=== PATIENT | female | born 1950 | race Caucasian/White ===

== ENCOUNTER 2016-09-14 08:35 | Inpatient (IN) | payer OTHER ==
[2016-09-08 11:04] LABS: HEMATOCRIT 38.6 % (37.0-47.0); HEMOGLOBIN 12.9 gm/dL (12.0-15.0); MCH 30.5 pg (26.0-34.0); MCHC 33.5 % (28.0-37.0); MCV 91.3 fL (80.0-100.0); RBC 4.23 mil/uL (4.20-5.00); RDW 15.2 % (10.5-14.5); WBC 8.7 thou/uL (4.0-11.0)
[2016-09-08 11:15] LABS: URINE BILIRUBIN NEGATIVE (Negative); URINE BLOOD NEGATIVE (Negative); URINE COLOR YELLOW; URINE GLUCOSE-RANDOM* NEGATIVE (Negative); URINE KETONES NEGATIVE (Negative); URINE LEUKOCYTES-REFLEX NEGATIVE (Negative); URINE PROTEIN (DIPSTICK) NEGATIVE (Negative); URINE UROBILINOGEN 0.2 E.U./dl (0.2-1.0)
[2016-09-08 11:16] LABS: APTT 29.9 Seconds (24.5-32.8); PROTIME 9.4 Seconds (9.3-11.4)
[2016-09-08 11:17] LABS: ALBUMIN 3.5 g/dL (3.4-5.0); CALCIUM 8.7 mg/dL (8.5-10.1); CREATININE 1.5 mg/dL (0.6-1.3); POTASSIUM 4.7 mmol/L (3.5-5.1); TOTAL BILIRUBIN 0.2 mg/dL (<0.1-1.0); TOTAL PROTEIN 7.7 g/dL (6.4-8.2)
[~2016-09-14] VITALS: Ht 167.6 cm; Wt 93.0 kg
--- NOTE | ~2016-09-14 | CATHLAB ---
[facility] [place] [address] INVASIVE PROCEDURE REPORT Name: CARMINE VACA Room #: 244-P [facility] IN M.R.#: [id number] Admission: 09/28/16 Attend Phys: Jamie Dalton MD Discharge: 09/29/16 Date of : 46 Date of Service: 09/28/16 1120 Report #: [id number] THIS REPORT FOR: //name// CC: Sebas Dalton NAME OF THE STUDY: Abdominal aortic aneurysm repair using [place] Excluder stent graft. OPERATORS: 1. Dr. Jamie Dalton of cardiovascular surgery. 2. Dr. Gabino Sales, of interventional radiology. INDICATION: 6.4 cm enlarging saccular infrarenal abdominal aortic aneurysm. Coronary artery disease. Peripheral arterial disease. Chronic renal insufficiency. Renovascular stenosis. PROCEDURE: Procedure and risk of abdominal aortic aneurysm repair using stent graft technique were thoroughly discussed with the patient as well as the option of open repair and consent obtained. The patient brought to the interventional operating suite and the abdomen and both groins were prepped and draped in normal sterile fashion. Dr. Dalton performed cut down first over the right groin and then over the left groin. Femoral vessels were secured with vessel loops. I then made a puncture into the right common femoral artery and placed a wire followed by a catheter into the proximal descending thoracic aorta. This allowed placement of a support wire. Following this, an 18-[place] sheath was placed via the right groin to the level of the infrarenal abdominal aorta. I then used a micropuncture set to gain access into the left femoral artery. Wire was upsized and a 5-Andorran catheter was placed via the left groin to the level of the proximal descending thoracic aorta. A support wire was placed. Subsequently, we placed a 12-Andorran sheath via the left groin to the level of the infrarenal abdominal aorta. We selected a 35 x 14.5 x 18 [place] Excluder main body stent graft and we placed this via the right groin. 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 There was a previous stent in the left renal artery. Dr. Dalton and I worked together for positioning and deployment of the main body of the stent graft at the inferior margin of the left renal artery. Following this via the left groin, I cannulated the contralateral gate and confirmed good intragraft position in the usual fashion. We selected a 14.5 x 12 cm contralateral iliac limb. Dr. Dalton and I worked together for positioning and deployment of the left iliac limb. Subsequently, Dr. Dalton and Adin finished the deployment of the right iliac limb portion of the stent graft. A Tri-Lobe balloon was inflated at the aortic attachment of the graft and throughout the right iliac limb. A Q50 balloon was inflated throughout the left iliac limb. Final aortoiliac angiograms were obtained. Catheters were removed. Sheaths were removed followed by the wires. Dr. Dalton then closed both arteriotomy sites and both cut downs in both groins. No immediate complications. [facility] [address] [place] [address] INVASIVE PROCEDURE REPORT Name: CARMINE VACA Room #: 244-P [facility] IN M.R.#: [id number] Admission: 09/28/16 Attend Phys: Jamie Dalton MD Discharge: 09/29/16 Date of : 46 Date of Service: 09/28/16 1120 Report #: [id number] FINDINGS: Abdominal aortic aneurysm repair using [place] Excluder stent graft as fully reviewed above. At the conclusion of the procedure, there was good flow throughout the stent graft. There is good position of both the proximal and distal attachment sites. There is no evidence of endoleak. Both iliac limbs are widely patent. Good flow into both internal iliac arteries remains. IMPRESSION: Abdominal aortic aneurysm repair using [place] Excluder stent graft was technically satisfactory. <ELECTRONICALLY SIGNED> By: Gabino Sales MD 10/06/16 1038 1120 1143 Gabino Sales MD /nt
--- NOTE | ~2016-09-14 | HC ---
[facility] [place] [address] CONSULTATION Name: CARMINE VACA [place] Room #: 244-P DIS IN M.R.#: [id number] Admission: 09/28/16 Attend Phys: Jamie Dalton MD Discharge: 09/29/16 Date of : 46 Report #: [id number] THIS REPORT FOR: //name// CC: Sebas Dalton DATE OF SERVICE: 09/28/2016 CHIEF COMPLAINT: Medical management. HISTORY OF PRESENT ILLNESS: The patient is a 66-year-old female, who is status post infrarenal abdominal aortic aneurysm, stent placement, is needing medical management. Currently, denies any chest pain, shortness of breath. She denies any other issues at this time. PAST MEDICAL HISTORY: Chronic kidney disease, COPD, hypertension, coronary artery disease with stents, peripheral arterial disease with stents and infrarenal abdominal aortic aneurysm with stents as above and bladder cancer, status post resection. PAST SURGICAL HISTORY: She has had a coronary stent, peripheral stents, aneurysm graft and stents as above, cholecystectomy, bladder resection, hysterectomy. ALLERGIES: ASPIRIN, reaction unknown. SOCIAL HISTORY: She smokes about 2 packs per day for past 40 years, still continues to smoke. FAMILY HISTORY: Reviewed and noncontributory. REVIEW OF SYSTEMS: A 14-point review of system was conducted, all negative except for above. HOME MEDICATIONS: Vitamin D 1000 units daily, clonazepam 1 mg b.i.d., Plavix 75 daily, DuoNeb p.r.n., Zocor 20 at bedtime, Spiriva 1 inhalation daily, trazodone 200 mg daily, Effexor 75 mg at bedtime. PHYSICAL EXAMINATION: VITAL SIGNS: Temperature 97, pulse of 77, blood pressure 155/37, O2 sat 96% on room air. GENERAL: She is awake, following commands and answering question appropriately. HEENT: Normocephalic, atraumatic. NECK: Supple. Pupils equal. CARDIOVASCULAR: Regular rate and rhythm, no murmurs. Showed good peripheral pulses. [facility] [address] [place] [address] CONSULTATION Name: NOLACARMINE MONTANA Room #: 244-[facility] IN M.R.#: [id number] Admission: 09/28/16 Attend Phys: Jamie Dalton MD Discharge: 09/29/16 Date of : 46 Report #: [id number] LUNGS: Clear to auscultation bilaterally. No crackles or wheeze. ABDOMEN: Soft, obese. No distention or tenderness. EXTREMITIES: No edema. NEUROLOGIC: Nonfocal. ASSESSMENT AND PLAN: 1. Status post aortic aneurysm repair with stents graft. Continue postop care per CT surgery. 2. History of chronic kidney disease. We will likely need to recheck her renal indices in the a.m. 3. Chronic obstructive pulmonary disease. Continue home meds. 4. Hypertension. Resume her home medications. 5. Coronary artery disease, prior stents. Again, continue home meds include Plavix if it is okay with CT surgery. 6. Morbid obesity. The patient will benefit from outpatient followup in this regards. 7. History of bladder cancer status post resection. 8. Deep venous thrombosis prophylaxis with sequential compression device. <ELECTRONICALLY SIGNED> By: Opal Marquez MD 10/25/162009 1558 0041 Opal Marquez MD /nt
--- NOTE | ~2016-09-14 | EKG ---
[place] [address] [address] [place] [address] ELECTROCARDIOGRAM REPORT Name: CARMINE VACA Room #: PRE IN .R.#: [id number] Admission: Attend Phys: Jamie Dalton MD Discharge: Date of : 46 Report #: [id number] THIS REPORT FOR: //name// [facility] Test Date: 2016-09-08 Test Time: 10:57:59 Pat Name: CARMINE VACA Department: Room: Gender: F [employer]: belia : 1950 Requested By: Jamie Dalton Order Number: [id number] MD: Jeremi Jha Measurements Intervals [place] Rate: 77 P: 54 AK: 151 QRS: 40 QRSD: 97 T: 68 QT: 415 QTc: 470 Interpretive Statements Sinus rhythm RSR' in V1 or V2, probably normal variant Nonspecific T abnormalities, anterior leads Baseline wander in lead(s) V6 No previous ECG available for comparison Electronically Signed On 09-09-2016 9:25:01 STEREOTYPER by Jeremi Jha [email or web address] <ELECTRONICALLY SIGNED> By: Jeremi Jha MD, [facility] 09/09/16 0925 1057 105 Jeremi Jha MD, [facility] /EPI
--- NOTE | ~2016-09-14 | O ---
[facility] [place] [address] OPERATIVE REPORT Name: GISELLEANASandraCARMINE MONTANA Room #: 244-P [facility] IN M.R.#: [id number] Admission: 09/28/16 Attend Phys: Jamie Dalton MD Discharge: 09/29/16 Date of : 46 Report #: [id number] THIS REPORT FOR: //name// CC: Sebas Dalton DATE OF SERVICE: 09/28/2016 PREOPERATIVE DIAGNOSIS: Infrarenal abdominal aortic aneurysm. POSTOPERATIVE DIAGNOSIS: Infrarenal abdominal aortic aneurysm. OPERATION: Implant of abdominal aortic stent graft and appropriate arteriography. SURGEONS: Jamie Dalton MD and Gabino Sales MD SOFTWARE CONFIGURATION MANAGER: ABIGAIL Feliciano (Jeremy) ANESTHESIA: General. INDICATIONS: The patient is a 66-year-old with a bilobed and large infrarenal abdominal aortic aneurysm that measures 6.4 cm or so. The neck of the aneurysm is a bit dilated and thrombus, but otherwise configuration is reasonable for stent graft implant. FINDINGS AND TECHNIQUE: After general anesthesia was established, exposure was obtained through groin incisions to expose the common femoral arteries bilaterally. 10,000 units of heparin were given. Each of the femoral arteries was punctured with an Amplatz needle and then Seldinger technique was used to pass guidewires and then introducers into the groin. Into the right side, a catheter was used to exchange for a stiff Pepito wire and then over this and through the right femoral cut down, the 18-Albanian sheath was placed, similar procedure was done on the left side to place the 12-Albanian sheath. The patient had preexisting renal stents and these were to identify the proximal landing zone. To the right side, the 35 x 14.5 mm x 18 cm ipsilateral main body component was deployed. Through the left side, the contralateral gate was cannulated. A sheath arteriogram was taken and the measurements from the gate to the left hypogastric was made and a 14.5 mm x 12 cm contralateral leg was selected and [facility] [address] [place] [address] OPERATIVE REPORT Name: CARMINE VACA Room #: 244-P [facility] IN M.R.#: [id number] Admission: 09/28/16 Attend Phys: Jamie Dalton MD Discharge: 09/29/16 Date of : 46 Report #: [id number] placed. When all of the components were placed, a Q50 balloon was placed through the left side and the Tri-Lobe balloon was placed to the right side and sequentially dilated the length of the prosthesis. Pigtail catheter was placed finally and a final arteriogram was taken and this showed good position of the graft with no evidence of endoleak. The dilators were replaced in the sheaths and then the sheaths and dilators were removed, then the guidewires were removed and then each of the common femoral cutdown was repaired with interrupted Prolene. Flow was established. Good hemostasis was ascertained. 25 mg of protamine was given to reverse the heparin. When hemostasis was satisfactory, the groin incisions were closed with interrupted Vicryl and continuous Monocryl. Good distal pulses were palpable. All counts were reported as correct. The patient tolerated the procedure nicely, taken to the recovery area in good condition. <ELECTRONICALLY SIGNED> By: Jamie Dalton MD 10/10/16 1224 0801 0827 Jamie Dalton MD /nt
--- NOTE | ~2016-09-14 | H ---
[facility] [address] [address] HISTORY AND PHYSICAL Name: CARMINE VACA Room #: 244-P DIS IN M.R.#: [id number] Admission: 09/28/16 Attend Phys: Jamie Dalton MD Discharge: 09/29/16 Date of : 46 Report #: [id number] THIS REPORT FOR: //name// For History and Physical, please see office documentation/handwritten note in the patient's medical record. <ELECTRONICALLY SIGNED> By: Jamie Dalton MD 10/10/16 1224 1254 Jamie Dalton MD /
[~2016-09-14 08:35] MED LIST: ACYCLOVIR 800800 M1 PO; ADVAIR 250-501 EACH IH; AMLODIPINE BESYL5 MG PO; ASPIRIN EC81 M1 PO; AUGMENTIN 875875 MG PO; CIPRO500 MG PO; CLONAZEPAM 1 MG1 M1 PO; DUONEB 2.5-0.5 M3 ML INH; EFFIENT10 MG PO; EPIPEN0.3 MG/0.3 IM; FLAGYL500 M1 PO; FLAGYL500 MG PO; GLUCOSAMINE HC500 MG PO; LEXAPRO20 MG PO; LORTAB 5-325 M1 EACH PO; MAGOX 400400 MG PO; NEXIUM40 MG PO; NORCO 5-325 TA1 EACH PO; PLAVIX 75 MG TA75 M1 PO; PLAVIX 75 MG TA75 MG PO; PREDNISONE 20 M20 M1 PO; PREDNISONE 20 M20 MG PO; PROAIR HFA8.5 GM IH; SPIRIVA18 MCG INH; TRAZODONE HCL100 MG PO; VALIUM5 MG PO; VENLAFAXIN37.5 MG/1 PER TUBE; VENLAFAXIN75 MG/1 T2 PO; VITAMIN D1000 UNIT PO; VITAMIN D3400 UNIT PO; VYTORIN 10-401 EACH PO; ZANTAC 150MG T150 M1 PO; ZESTRIL10 MG PO; ZOCOR20 MG PO; ZYRTEC10 M2 PO
[2016-09-28] VITALS (13 sets, daily range): BP systolic 84–156; BP diastolic 38–98
[2016-09-29] VITALS (14 sets, daily range): BP systolic 102–138; BP diastolic 36–69
[2016-09-29 05:02] LABS: HEMATOCRIT 33.9 % (37.0-47.0); HEMOGLOBIN 10.8 gm/dL (12.0-15.0); MCH 30.2 pg (26.0-34.0); MCHC 31.8 % (28.0-37.0); MCV 94.9 fL (80.0-100.0); RBC 3.57 mil/uL (4.20-5.00); RDW 14.9 % (10.5-14.5); WBC 11.2 thou/uL (4.0-11.0)
[2016-09-29 05:12] LABS: CALCIUM 7.1 mg/dL (8.5-10.1); CREATININE 1.8 mg/dL (0.6-1.3); POTASSIUM 4.8 mmol/L (3.5-5.1)
[2016-10-22] MEDS ORDERED: COLACE100 MG PO (08:27)
[2016-10-22] MEDS ORDERED: CARAFATE 1 GM TA1 GM PO (08:27)
[2016-10-22] MEDS ORDERED: PROTONIX40 M2 PO (08:27)
[2016-10-22] MEDS ORDERED: PERCOCET 5-3251 EACH PO (08:27)
[2016-10-22] MEDS ORDERED: MIRALAX17 GM PO (08:27)
== END 2016-09-29 14:40 | disposition home or self-care (01) | DRG 269 ==
LOC: PRE 08:35 → TBA 09-28 05:06 → ICU 09-28 05:06 → PRE 09-28 11:07 → ICU 09-28 14:27
PROVIDERS: Physician Assistant; Surgery Vascular Surgery
PROC: 047 Lower Arteries, Dilation (ICD-10-PCS; principal; 2016-09-28)
PROC: 04V03DZ Restriction of Abdominal Aorta with Intraluminal Device, Percutaneous Approach (ICD-10-PCS; 2016-09-28)
PROC: 03HB33Z Insertion of Infusion Device into Right Radial Artery, Percutaneous Approach (ICD-10-PCS; 2016-09-28)
DX: I71.4 Abdominal aortic aneurysm, without rupture (principal); J44.9 Chronic obstructive pulmonary disease, unspecified; E66.01 Morbid (severe) obesity due to excess calories; I12.9 Hypertensive chronic kidney disease with stage 1 through stage 4 chronic kidney disease, or unspecified chronic kidney disease; N18.9 Chronic kidney disease, unspecified; I73.9 Peripheral vascular disease, unspecified; I25.10 Atherosclerotic heart disease of native coronary artery without angina pectoris; F17.210 Nicotine dependence, cigarettes, uncomplicated; Z85.51 Personal history of malignant neoplasm of bladder; Z90.49 Acquired absence of other specified parts of digestive tract; Z95.5 Presence of coronary angioplasty implant and graft; Z90.710 Acquired absence of both cervix and uterus; Z88.6 Allergy status to analgesic agent; Z68.33 Body mass index [BMI] 33.0-33.9, adult; Z79.899 Other long term (current) drug therapy; Z28.21 Immunization not carried out because of patient refusal
CPT/HCPCS: 10078; 47375; 48888; 50010; 50101; 50386; 50455; 51078; 51751; 54118; 56524; 56526; 56528; 56531; 56668; 56760; 57093; 62110; 62900; 65020; 65043; 70005

== ENCOUNTER → 2017-07-17 | Outpatient (CLI) | payer OTHER ==
[~2017-07-17] MED LIST changes: +CARAFATE 1 GM TA1 GM PO; +COLACE100 MG PO; +MIRALAX17 GM PO; +PERCOCET 5-3251 EACH PO; +PROTONIX40 M2 PO
== END ==
LOC: NUC 07:03
DX: I25.10 Atherosclerotic heart disease of native coronary artery without angina pectoris (principal)

== ENCOUNTER → 2017-08-21 | Outpatient (CLI) | payer OTHER ==
[2017-08-21 10:14] LABS: CREATININE 1.7 mg/dL (0.6-1.0)
== END ==
LOC: NUC → CAT 09:25 → LABMALL 09:39 → CAT 09:44
PROVIDERS: Nuclear Medicine Nuclear Cardiology
DX: I71.4 Abdominal aortic aneurysm, without rupture (principal); N26.1 Atrophy of kidney (terminal); K57.30 Diverticulosis of large intestine without perforation or abscess without bleeding; M16.0 Bilateral primary osteoarthritis of hip; J84.10 Pulmonary fibrosis, unspecified; Z95.828 Presence of other vascular implants and grafts; Z90.710 Acquired absence of both cervix and uterus

== ENCOUNTER → 2018-04-26 | Outpatient (CLI) | payer OTHER | LOC: CAT 10:26 | DX: I71.4 Abdominal aortic aneurysm, without rupture (principal); N26.1 Atrophy of kidney (terminal); K57.30 Diverticulosis of large intestine without perforation or abscess without bleeding; J84.10 Pulmonary fibrosis, unspecified; M16.0 Bilateral primary osteoarthritis of hip; N18.3 Chronic kidney disease, stage 3 (moderate); J44.9 Chronic obstructive pulmonary disease, unspecified; I25.10 Atherosclerotic heart disease of native coronary artery without angina pectoris; G47.30 Sleep apnea, unspecified; Z87.891 Personal history of nicotine dependence; Z90.49 Acquired absence of other specified parts of digestive tract ==

== ENCOUNTER → 2019-04-11 | Outpatient (CLI) | payer OTHER ==
--- NOTE | 2019-04-11 14:54 | 2DMMODE ---
[facility] [place] [address] 2 D/M-MODE ECHOCARDIOGRAM Name: CARMINE VACA Room #: [facility]#: [id number] ������������� Admission: 04/11/19 ������������� Attend Phys: Parminder Gomez MD Discharge: ��� ������������� ��� Date of : 46 Date of Service: 04/11/19 1454 �� Report #: [id number] �������� ��������������������������������������������[id number] THIS REPORT FOR: //name// APPROVED REPORT Study performed: 04/11/2019 13:58:13 EXAM: Comprehensive 2D, Doppler, and color-flow Echocardiogram Patient Location: Echo lab, Out-Patient Status: routine BSA: 1.93 HR: 72 bpm BP: 130/76 mmHg Rhythm: NSR Other Information Study Quality: Adequate Risk Factors: Cardiac Risk Factors: Smoking Indications COPD CAD S/P Stents x2 (2004) 2D Dimensions IVSd: 12.03 (7-11mm) LVOT Diam: 19.00 (18-24mm) LVDd: 34.89 mm PWd: 11.96 (7-11mm) Ascending Ao: 35.50 (22-36mm) LVDs: 22.68 (25-40mm) Aortic Root: 28.26 mm LV Single Plane 4CH: 71.11 % LV Single Plane 2CH: 78.96 % Volumes Left Atrial Volume (Systole) Single Plane 4CH: 35.19 mL Single Plane 2CH: 43.34 mL LA ESV Index: 23.00 mL/m2 Aortic Valve AoV Peak Valeriy.: 1.65 m/s AO Peak Gr.: 10.84 mmHg LVOT Max P.10 mmHg LVOT Max V: 1.23 m/s [facility] [address] [place] [address] 2 D/M-MODE ECHOCARDIOGRAM Name: CARMINE VACA Room #: [facility]#: [id number] ������������� Admission: 04/11/19 ������������� Attend Phys: Parminder Gomez MD Discharge: ��� ������������� ��� Date of : 46 Date of Service: 04/11/19 1454 �� Report #: [id number] �������� ��������������������������������������������[id number] MAXINE Vmax: 2.18 cm2 Mitral Valve MV Decel. Time: 204.38 ms MV PHT: 59.27 ms IVRT: 78.43 ms TDI Medial E' Valeriy.: 0.07 m/s Lateral E' Valeriy.: 0.04 m/s Pulmonary Valve PV Peak Valeiry.: 1.07 m/s PV Peak Gr.: 4.54 mmHg Pulmonary Vein P Vein S: 0.59 m/s P Vein A: 0.25 m/s P Vein D: 0.39 m/s P Vein A Dur.: 110.7 msec P Vein S/D Ratio: 1.51 Tricuspid Valve RAP Estimate: 7.00 mmHg Left Ventricle The left ventricle is normal size. There is normal LV segmental wall motion. Mild concentric left ventricular hypertrophy. Left ventricular systolic function is hyperdynamic. LVEF is >70%. Mild diastolic dysfunction is present (impaired relaxation pattern). Right Ventricle The right ventricle is normal size. The right ventricular systolic function is normal. Atria The left atrium size is normal. The right atrium size is normal. Aortic Valve The aortic valve is normal in structure. No aortic regurgitation is present. There is no aortic valvular stenosis. Mitral Valve The mitral valve is normal in structure. There is no mitral valve regurgitation noted. No evidence of mitral valve stenosis. Tricuspid Valve [facility] [place] [address] 2 D/M-MODE ECHOCARDIOGRAM Name: CARMINE VACA [facility] Room #: REG Neal#: [id number] ������������� Admission: 04/11/19 ������������� Attend Phys: Parminder Gomez MD Discharge: ��� ������������� ��� Date of : 46 Date of Service: 04/11/19 1454 �� Report #: [id number] �������� ��������������������������������������������[id number] The tricuspid valve is normal in structure. There is no tricuspid valve regurgitation noted. Pulmonic Valve The pulmonary valve is normal in structure. There is no pulmonic valvular regurgitation. Great Vessels The aortic root is normal in size. The ascending aorta is normal in size. IVC is normal in size and collapses >50% with inspiration. Pericardium There is no pericardial effusion. <Conclusion> The left ventricle is normal size. Mild concentric left ventricular hypertrophy. Left ventricular systolic function is hyperdynamic. Mild diastolic dysfunction is present (impaired relaxation pattern). The right ventricle is normal size. The left atrium size is normal. The right atrium size is normal. The aortic valve is normal in structure. The mitral valve is normal in structure. There is no tricuspid valve regurgitation noted. ��������������������������������������������� <ELECTRONICALLY SIGNED> ���������������������������������������� By: Parminder Gomez MD ��������������������������������������������� 04/11/19 1454 1454 1454 Parminder Gomez MD /INF
== END ==
LOC: CV 03-07 16:16
DX: I51.7 Cardiomegaly (principal); I25.10 Atherosclerotic heart disease of native coronary artery without angina pectoris; J44.9 Chronic obstructive pulmonary disease, unspecified; Z95.5 Presence of coronary angioplasty implant and graft

== ENCOUNTER → 2019-05-24 | Outpatient (CLI) | payer OTHER | LOC: CAT 12:40 | DX: I71.4 Abdominal aortic aneurysm, without rupture (principal); I25.10 Atherosclerotic heart disease of native coronary artery without angina pectoris; J84.10 Pulmonary fibrosis, unspecified; M16.0 Bilateral primary osteoarthritis of hip; K57.30 Diverticulosis of large intestine without perforation or abscess without bleeding; N26.1 Atrophy of kidney (terminal); Z95.5 Presence of coronary angioplasty implant and graft; Z90.710 Acquired absence of both cervix and uterus; Z90.49 Acquired absence of other specified parts of digestive tract ==

== ENCOUNTER → 2019-10-14 | Outpatient (CLI) | payer OTHER | LOC: SJCVC 12:09 | DX: I45.10 Unspecified right bundle-branch block (principal); R94.31 Abnormal electrocardiogram [ECG] [EKG]; I25.10 Atherosclerotic heart disease of native coronary artery without angina pectoris; I10 Essential (primary) hypertension; J44.9 Chronic obstructive pulmonary disease, unspecified; E78.00 Pure hypercholesterolemia, unspecified ==

== ENCOUNTER → 2020-04-08 | Outpatient (CLI) | payer OTHER | LOC: SJCVCIMAG 08:52 | PROVIDERS: ATTEND Internal Medicine Cardiovascular Disease | DX: I45.2 Bifascicular block (principal); R00.0 Tachycardia, unspecified; I25.10 Atherosclerotic heart disease of native coronary artery without angina pectoris; I12.9 Hypertensive chronic kidney disease with stage 1 through stage 4 chronic kidney disease, or unspecified chronic kidney disease; N18.3 Chronic kidney disease, stage 3 (moderate); E78.5 Hyperlipidemia, unspecified; J44.9 Chronic obstructive pulmonary disease, unspecified; F17.210 Nicotine dependence, cigarettes, uncomplicated; E78.00 Pure hypercholesterolemia, unspecified; Z79.899 Other long term (current) drug therapy; Z82.49 Family history of ischemic heart disease and other diseases of the circulatory system ==

== ENCOUNTER → 2020-05-18 | Outpatient (CLI) | payer OTHER | LOC: CAT 15:30 | PROVIDERS: ATTEND Nuclear Medicine Nuclear Cardiology | DX: K57.30 Diverticulosis of large intestine without perforation or abscess without bleeding (principal); I71.4 Abdominal aortic aneurysm, without rupture; J84.10 Pulmonary fibrosis, unspecified; I05.9 Rheumatic mitral valve disease, unspecified; M16.0 Bilateral primary osteoarthritis of hip; Z90.49 Acquired absence of other specified parts of digestive tract; Z95.828 Presence of other vascular implants and grafts ==

== ENCOUNTER → 2020-05-19 | Outpatient (CLI) | payer OTHER | LOC: SJCVCIMAG 07:44 | PROVIDERS: ATTEND Nuclear Medicine Nuclear Cardiology | DX: I65.23 Occlusion and stenosis of bilateral carotid arteries (principal); I12.9 Hypertensive chronic kidney disease with stage 1 through stage 4 chronic kidney disease, or unspecified chronic kidney disease; N18.3 Chronic kidney disease, stage 3 (moderate); I71.4 Abdominal aortic aneurysm, without rupture; I73.9 Peripheral vascular disease, unspecified; I70.1 Atherosclerosis of renal artery; I25.10 Atherosclerotic heart disease of native coronary artery without angina pectoris; J44.9 Chronic obstructive pulmonary disease, unspecified; F17.210 Nicotine dependence, cigarettes, uncomplicated; Z79.899 Other long term (current) drug therapy ==

== ENCOUNTER → 2020-06-04 | Outpatient (CLI) | payer OTHER | LOC: SJCVCIMAG 06-02 11:07 | PROVIDERS: ATTEND Nuclear Medicine Nuclear Cardiology | DX: I70.203 Unspecified atherosclerosis of native arteries of extremities, bilateral legs (principal); F17.210 Nicotine dependence, cigarettes, uncomplicated ==

== ENCOUNTER → 2020-10-07 | Outpatient (CLI) | payer MEDICARE | LOC: SJCVC 10:50 | PROVIDERS: ATTEND Internal Medicine Cardiovascular Disease | DX: I45.10 Unspecified right bundle-branch block (principal); R94.31 Abnormal electrocardiogram [ECG] [EKG]; I10 Essential (primary) hypertension; I25.10 Atherosclerotic heart disease of native coronary artery without angina pectoris; J44.9 Chronic obstructive pulmonary disease, unspecified; F17.200 Nicotine dependence, unspecified, uncomplicated; E78.00 Pure hypercholesterolemia, unspecified; G25.5 Other chorea; F17.210 Nicotine dependence, cigarettes, uncomplicated; Z88.6 Allergy status to analgesic agent; Z88.8 Allergy status to other drugs, medicaments and biological substances; Z98.890 Other specified postprocedural states; Z90.49 Acquired absence of other specified parts of digestive tract; Z90.710 Acquired absence of both cervix and uterus ==

== ENCOUNTER 2021-02-18 13:22 | Emergency (ER) | payer OTHER ==
[~2021-02-18] VITALS: Ht 167.6 cm; Wt 86.6 kg
[2021-02-18 16:05] VITALS: BP 165/88
== END 2021-02-18 16:03 | disposition home or self-care (01) ==
LOC: ER 13:22
DX: S80.11XA Contusion of right lower leg, initial encounter (principal); J44.9 Chronic obstructive pulmonary disease, unspecified; I25.10 Atherosclerotic heart disease of native coronary artery without angina pectoris; N18.30 Chronic kidney disease, stage 3 unspecified; F17.210 Nicotine dependence, cigarettes, uncomplicated; Z88.6 Allergy status to analgesic agent; Z90.49 Acquired absence of other specified parts of digestive tract; Z90.710 Acquired absence of both cervix and uterus; W01.0XXA Fall on same level from slipping, tripping and stumbling without subsequent striking against object, initial encounter; Y93.89 Activity, other specified; Y92.89 Other specified places as the place of occurrence of the external cause; Y99.8 Other external cause status

== ENCOUNTER → 2021-04-08 | Outpatient (CLI) | payer OTHER | LOC: SJCVCIMAG 08:10 | PROVIDERS: ATTEND Internal Medicine Cardiovascular Disease | DX: I25.10 Atherosclerotic heart disease of native coronary artery without angina pectoris (principal); I37.8 Other nonrheumatic pulmonary valve disorders; I45.10 Unspecified right bundle-branch block; I49.9 Cardiac arrhythmia, unspecified; E78.00 Pure hypercholesterolemia, unspecified; J44.9 Chronic obstructive pulmonary disease, unspecified; G43.909 Migraine, unspecified, not intractable, without status migrainosus; I13.10 Hypertensive heart and chronic kidney disease without heart failure, with stage 1 through stage 4 chronic kidney disease, or unspecified chronic kidney disease; N18.30 Chronic kidney disease, stage 3 unspecified; F17.210 Nicotine dependence, cigarettes, uncomplicated; Z95.5 Presence of coronary angioplasty implant and graft; Z88.8 Allergy status to other drugs, medicaments and biological substances; Z90.49 Acquired absence of other specified parts of digestive tract; Z90.710 Acquired absence of both cervix and uterus; Z98.890 Other specified postprocedural states; Z79.82 Long term (current) use of aspirin; Z79.899 Other long term (current) drug therapy; Z82.49 Family history of ischemic heart disease and other diseases of the circulatory system ==

== ENCOUNTER → 2021-05-18 | Outpatient (CLI) | payer OTHER | LOC: CAT 10:05 | PROVIDERS: ATTEND Nuclear Medicine Nuclear Cardiology | DX: I71.4 Abdominal aortic aneurysm, without rupture (principal); M16.0 Bilateral primary osteoarthritis of hip; N26.1 Atrophy of kidney (terminal); J84.10 Pulmonary fibrosis, unspecified; K91.5 Postcholecystectomy syndrome ==

== ENCOUNTER → 2021-05-18 | Outpatient (CLI) | payer OTHER | LOC: SJCVCIMAG | PROVIDERS: ATTEND Nuclear Medicine Nuclear Cardiology | DX: I65.23 Occlusion and stenosis of bilateral carotid arteries (principal) ==

== ENCOUNTER → 2021-05-19 | Outpatient (CLI) | payer OTHER | LOC: SJCVCIMAG 10:20 | PROVIDERS: ATTEND Nuclear Medicine Nuclear Cardiology | DX: I71.4 Abdominal aortic aneurysm, without rupture (principal); I77.9 Disorder of arteries and arterioles, unspecified; I25.10 Atherosclerotic heart disease of native coronary artery without angina pectoris; I12.9 Hypertensive chronic kidney disease with stage 1 through stage 4 chronic kidney disease, or unspecified chronic kidney disease; I70.1 Atherosclerosis of renal artery; N18.9 Chronic kidney disease, unspecified; E78.00 Pure hypercholesterolemia, unspecified; I73.9 Peripheral vascular disease, unspecified; J44.9 Chronic obstructive pulmonary disease, unspecified; Z95.5 Presence of coronary angioplasty implant and graft; F17.210 Nicotine dependence, cigarettes, uncomplicated; Z88.8 Allergy status to other drugs, medicaments and biological substances; Z79.82 Long term (current) use of aspirin; Z79.899 Other long term (current) drug therapy; Z95.818 Presence of other cardiac implants and grafts ==

== ENCOUNTER → 2021-10-14 | Outpatient (CLI) | payer OTHER | LOC: SJCVC 11:19 | PROVIDERS: ATTEND Internal Medicine Cardiovascular Disease | DX: I25.10 Atherosclerotic heart disease of native coronary artery without angina pectoris (principal); I10 Essential (primary) hypertension; J44.9 Chronic obstructive pulmonary disease, unspecified; E78.00 Pure hypercholesterolemia, unspecified; R42 Dizziness and giddiness; Z72.0 Tobacco use ==